=== PATIENT | female | born 1990 | race Caucasian/White ===

== ENCOUNTER 2017-10-30 23:47 | Emergency (ER) | payer MEDICAID, OTHER ==
[2017-10-31 01:53] LABS: URINE PH (Dip) POC 5.5 (5.0-8.5)
[2017-10-31 01:53] LABS: URINE BLOOD (Dip) POC Negative (NEGATIVE); URINE GLUCOSE (Dip) POC Negative (NEGATIVE); URINE KETONES (Dip) POC Negative (NEGATIVE); URINE LEUKOCYTE EST (Dip) POC Negative (NEGATIVE); URINE NITRITE (Dip) POC Negative (NEGATIVE); URINE TOTAL PROTEIN POC Negative (NEGATIVE)
[2017-10-31 02:18] LABS: ADD MAN DIFF? NO
[2017-10-31 02:20] LABS: BASOPHILS % 0.3 % (0.0-2.0); EOSINOPHILS # 0.2 10^3/ul (0.0-0.5); EOSINOPHILS % 1.6 % (0.0-7.0); HEMATOCRIT 41.7 % (37.0-47.0); HEMOGLOBIN 13.9 g/dl (12.0-16.0); LYMPHOCYTES # 2.9 10^3/ul (0.8-2.9); LYMPHOCYTES % 24.9 % (15.0-51.0); MEAN CORPUSCULAR HEMOGLOBIN 29.8 pg (29.0-33.0); MEAN CORPUSCULAR HGB CONC 33.3 g/dl (32.0-37.0); MEAN CORPUSCULAR VOLUME 89.5 fl (82.0-101.0); MEAN PLATELET VOLUME 10.5 fl (7.4-10.4); MONOCYTE # 0.8 10^3/ul (0.3-0.9); MONOCYTES % 6.8 % (0.0-11.0); NEUTROPHIL # 7.7 10^3/ul (1.6-7.5); NEUTROPHILS % 66.1 % (39.0-77.0); PLATELET COUNT 282 10^3/UL (140-415); RED BLOOD COUNT 4.66 10^6/ul (4.20-5.40); RED CELL DISTRIBUTION WIDTH 12.2 % (11.5-14.5)
[2017-10-31 02:20] LABS: WHITE BLOOD COUNT 11.6 10^3/ul (4.8-10.8)
[2017-10-31] MEDS: SOD CHLORIDE 0.9% 1,000 ML IV (02:21)
[2017-10-31] MEDS: PANTOPRAZOLE 40 MG INJ IV (02:21)
[2017-10-31] MEDS: ONDANSETRON 4 MG INJ IV (02:21)
[2017-10-31] MEDS: KETOROLAC 30 MG INJ IV (02:22)
[2017-10-31 02:28] LABS: ADD UMIC NO; UR ASCORBIC ACID NEGATIVE (NEGATIVE); UR BILIRUBIN (Dip) NEGATIVE (NEGATIVE); UR BLOOD (Dip) NEGATIVE (NEGATIVE); UR CALCIUM OXALATE CRYSTAL MODERATE /HPF (NONE SEEN); UR CLARITY SLIGHTLY CLOUDY (CLEAR); UR COLOR YELLOW (YELLOW); UR GLUCOSE (Dip) NEGATIVE (NEGATIVE); UR KETONES (Dip) NEGATIVE (NEGATIVE); UR LEUKOCYTE ESTERASE (Dip) NEGATIVE Leu/ul (NEGATIVE); UR NITRITE (Dip) NEGATIVE (NEGATIVE); UR RBC 2 /HPF (0-5); UR SPECIFIC GRAVITY (Dip) 1.023 (1.003-1.030); UR SQUAMOUS EPITHELIAL CELL FEW /HPF (FEW); UR TOTAL PROTEIN (Dip) NEGATIVE (NEGATIVE); UR UROBILINOGEN (Dip) NEGATIVE (NEGATIVE); UR WBC 3 /HPF (0-5)
[2017-10-31 02:40] LABS: ALANINE AMINOTRANSFERASE 16 IU/L (13-69); ALBUMIN 4.2 g/dl (3.3-4.9); ALKALINE PHOSPHATASE 104 IU/L (42-121); ANION GAP 13 (8-16); ASPARTATE AMINO TRANSFERASE 19 IU/L (15-46); BILIRUBIN,INDIRECT 0.2 mg/dl (0-1.1); BILIRUBIN,TOTAL 0.2 mg/dl (0.2-1.3); BLOOD UREA NITROGEN 14 mg/dl (7-20); CALCIUM 9.7 mg/dl (8.4-10.2); CARBON DIOXIDE 30 mmol/L (21-31); CHLORIDE 105 mmol/L (97-110); CREATININE 0.67 mg/dl (0.44-1.00); GLUCOSE 105 mg/dl (70-220); LIPASE 77 U/L (23-300); POTASSIUM 4.3 mmol/L (3.5-5.1); SODIUM 144 mmol/L (135-144)
[2017-10-31] MEDS: HYDROCODONE/APAP (5/325) TAB PO (04:11)
== END 2017-10-31 04:19 | disposition home or self-care (01) ==
LOC: FTE 23:47
DX: K80.20 Calculus of gallbladder without cholecystitis without obstruction (principal)
CPT/HCPCS: 36415; 74176; 80053; 81001; 81003; 81025; 83690; 85025; 96374; 96375; 99285-25

== ENCOUNTER 2018-03-19 14:29 | Emergency (ER) | payer MEDICAID | END 2018-03-19 18:34 | disposition home or self-care (01) | LOC: FTE 14:29 | DX: A49.9 Bacterial infection, unspecified (principal) | CPT/HCPCS: 99283; Z7502 ==